=== PATIENT | male | born 1945 | race Caucasian/White ===

== ENCOUNTER 2018-03-21 15:56 | Emergency (ER) | payer MEDICARE, OTHER ==
[~2018-03-21] VITALS: Ht 177.8 cm; Wt 113.4 kg
[~2018-03-21 15:56] MED LIST: ADULT LOW DOSE81 MG PO; FLEXERIL PO; IBUPROFEN 800800 M1 PO; MEDROLDOSEPACK PO; VITCB500GO; ZIAC 10-6.25 M1 EACH PO; ZOCOR40 MG PO
[2018-03-21 16:58] VITALS: BP 132/85
== END 2018-03-21 17:01 | disposition home or self-care (01) ==
LOC: M.ERS 15:56
DX: S61.011A Laceration without foreign body of right thumb without damage to nail, initial encounter (principal); I10 Essential (primary) hypertension; E78.00 Pure hypercholesterolemia, unspecified; Z85.828 Personal history of other malignant neoplasm of skin; Z88.1 Allergy status to other antibiotic agents; W22.8XXA Striking against or struck by other objects, initial encounter; Y93.89 Activity, other specified; Y92.89 Other specified places as the place of occurrence of the external cause; Y99.8 Other external cause status